=== PATIENT | female | born 2000 | race Caucasian/White ===

== ENCOUNTER 2019-04-27 19:10 | Emergency (ER) | payer BC, SELFPAY ==
[2019-04-27 19:11] VITALS: BP 124/84; PULSE 106; RESP 24; TEMP 37; O2SAT 100; BMI 26.6
[2019-04-27 19:17] VITALS: BP 124/84; PULSE 106; RESP 24; TEMP 37; O2SAT 100
--- NOTE | 2019-04-27 19:36 | EKG12_ITS ---
Test Reason : DYSRHYTHMIA Blood Pressure : / mmHG Vent. Rate : 078 BPM Atrial Rate : 078 BPM P-R Int : 184 ms QRS Dur : 104 ms QT Int : 384 ms P-R-T Axes : 063 003 032 degrees QTc Int : 437 ms Normal sinus rhythm with sinus arrhythmia Normal ECG Confirmed by SUKHJINDER GARDINER ([id number]), city editor RUY KEVIN ([id number] on 04/29/2019 3:12:47 PM Referred By: MR Confirmed By:SUKHJINDER GARDINER
--- NOTE | 2019-04-27 19:39 | ED.VIS.GEN ---
History of Present Illness Chief Complaint: Shortness of Breath Informant: Patient Onset: Weeks Context: Gradual Onset Timing: Continuous Current Severity: Moderate Maximum Severity: Moderate Narrative: Patient presents emergency department shortness of breath. She does have a history of asthma. She states that she was recently treated for upper respiratory infection with 21 days of Ceftin ear. She states that she has not improved. She states if she walks a distance, she gets short of breath. She has been using her inhaler with little relief. She is never had to take steroids for her breathing. She denies any chest pain. She denies any fever or chills. She is otherwise been in her normal state of health. Prior similar symptoms: No Recent Illness/Hospitalization: No Past Medical History - Allergies and Home Meds Allergies/Adverse Reactions: Allergies amoxicillin Allergy (Verified 04/27/19 19:16) Rash chlorhexidine Allergy (Verified 04/27/19 19:16) Rash ibuprofen Allergy (Verified 04/27/19 19:16) Other UNABLE TO HEAR sulfamethoxazole [From Bactrim] Allergy (Verified 04/27/19 19:16) Rash trimethoprim [From Bactrim] Allergy (Verified 04/27/19 19:16) Rash wheat Allergy (Verified 04/27/19 19:16) Other CELIAC tramadol Adverse Reaction (Verified 04/27/19 19:16) Nausea/Vom/Diarrhea Primary Care Physician: NOT,DEFINED [NON-STAFF] - Prior records reviewed: Yes Past Medical History: - - Allergic rhinitis Review of Systems General: Denies: Chills, Fever, Sweats Eyes: Denies: Visual changes - bilaterally, Diplopia ENT: Denies: Rhinorrhea, Sore throat Cardiovascular: Denies: Chest pain, Palpitations Respiratory: Reports: Dyspnea, Cough, Dyspnea on exertion Gastrointestinal: Denies: Abdominal pain, Nausea, Vomiting, Diarrhea, Melena, Hematochezia Genitourinary: Denies: Dysuria, Hematuria, Frequency Musculoskeletal: Denies: Back pain, Extremity Pain Skin: Denies: Rash, Wounds Neurological: Denies: Headache, Weakness, Numbness Physical Exam Vital Signs/Narrative: Vital Signs Temp Pulse Resp BP Pulse Ox 04/27/19 19:17 98.6 F 106 H 24 H 124/84 H 100 04/27/19 19:11 98.6 F 106 H 24 H 124/84 H 100 Inital Vital Signs reviewed: Yes General: Well nourished, Well developed, No Acute Distress Head: Normocephalic, Atraumatic Eyes: Perrl, EOMI ENT: Moist mucous membranes, No rhinorrhea Neck: Supple, Nontender Cardiovascular: Regular rate, Regular rhythm, No murmurs Respiratory: No distress, Chest nontender, Wheezing Abdomen: Soft, Nontender, Nondistended, Normal bowel sounds Back: Nontender, Normal Inspection Extremities: Nontender, No edema Skin: Normal color, No rash Neurological: Alert, Oriented x3, Cranial nerves II-XII grossly intact, Normal Strength, Normal Sensation Psychological: Normal affect, Normal Mood Diagnostic/Tx/Re-eval Clinical Impression(s) from Imaging Studies Chest X-Ray 04/27/19 19:45 IMPRESSION: Normal x-ray examination of the chest. Electronically Signed: Perry Hilton MD at 20:05 EST , Service support , - Medical Decision Making The patient has no tachypnea. Triage initially noted a heart rate of 106, but on my evaluation, the patient is 88. EKG was obtained. It demonstrated sinus rhythm at a rate of 78. There was no acute ischemic change. The patient is PERC negative. My suspicion is that this is persistent bronchial inflammation. I do feel this is likely why she has not improved with her antibiotic therapy. Patient was given a nebulized breathing treatment. Chest x-ray was obtained which was unremarkable for acute process. I do the patient is safe for outpatient therapy, but I do feel that she would benefit from a burst of prednisone. She is given a first dose here. She was counseled on using her inhaler as needed. She will return with any worsening symptoms. Impression 1. Bronchospasm ED Disposition - Plan for ED Patient: Instructions: BRONCHITIS, No Antibiotic (Adult) Prescriptions: Prednisone [Deltasone] 40 mg PO DAILY #10 tab Prescription Printed Referrals: NOT,DEFINED [NON-STAFF] -
--- NOTE | 2019-04-27 19:43 | ED.RN ---
NO OLD EKGS IN MUSE
--- NOTE | 2019-04-27 19:45 | RAD_ITS ---
STUDY: X-RAY CHEST REASON FOR EXAM: Female, 19 years old. COUGH WITH SOB TECHNIQUE: Frontal and lateral views of the chest. COMPARISON: None. FINDINGS: The lungs are clear and expanded. There is no demonstrated pleural abnormality. Normal size heart. Normal mediastinum and bob. Normal visualized pulmonary arteries. Normal visualized aortic arch and descending thoracic aorta. Normal visualized thoracic spine. Normal visualized ribs, clavicles, and shoulders. There is no demonstrated abnormality of the visualized soft tissue structures of the upper abdomen. RAD/Chest PA and Lateral IMPRESSION: Normal x-ray examination of the chest. Electronically Signed: Perry Hilton MD at 20:05 EST , Service support ,
[2019-04-27 20:04] VITALS: PULSE 83; RESP 20; O2SAT 99
[2019-04-27] MEDS: Albuterol 2.5 MG/3 ML VIAL.NEB. INHALATION ×3 (20:04)
[2019-04-27] MEDS: Ipratropium/Albuterol Sulfate 3 ML AMPUL.NEB INHALATION (20:04)
[2019-04-27] MEDS: predniSONE 20 MG Tablet 60 MG PO (20:20)
[2019-04-27 20:25] VITALS: O2SAT 97
--- NOTE | 2019-04-27 20:56 | CPS ---
x3 Albuterol given as well
== END 2019-04-27 20:54 | disposition home or self-care (01) ==
LOC: ED 19:58
PROVIDERS: Emergency Provider Emergency Medicine
DX: J98.01 Acute bronchospasm (principal)
CPT/HCPCS: 71046; 93005; 94640; 99251; 99283; G0463

== ENCOUNTER 2019-12-19 14:57 | Emergency (ER) | payer BC, SELFPAY ==
[2019-12-19 14:57] VITALS: BP 128/76; PULSE 87; RESP 14; TEMP 36.4; O2SAT 97; BMI 25.0
--- NOTE | 2019-12-19 15:32 | RAD_ITS ---
STUDY: X-RAY CHEST REASON FOR EXAM: Female, 19 years old. Chest pain TECHNIQUE: Frontal view of the chest COMPARISON: 04/27/19 FINDINGS: The lungs are clear. There are no pleural effusions. There is no pneumothorax. The heart is normal in size. The visualized osseous structures are within normal limits. RAD/Chest 1 View (Portable) IMPRESSION: No acute thoracic pathology. Electronically Signed: Jose Pearce, at 16:56 EDT Tel , Service support ,
--- NOTE | 2019-12-19 15:32 | EKG12_ITS ---
Test Reason : WEAK Blood Pressure : / mmHG Vent. Rate : 086 BPM Atrial Rate : 086 BPM P-R Int : 166 ms QRS Dur : 110 ms QT Int : 384 ms P-R-T Axes : 067 025 055 degrees QTc Int : 459 ms Normal sinus rhythm Nonspecific T wave abnormality Abnormal ECG Confirmed by DILLAN ZUNIGA, LILIANA ([id number]), video effects editor MOODY FLOR ([id number]) on 12/22/2019 10:04:12 AM Referred By: ELSIE Confirmed By:LILIANA GRIMALDO MD
--- NOTE | 2019-12-19 15:36 | ED.DCSUM_ITS ---
History of Present Illness Chief Complaint: Dizziness Narrative: Patient presents with some chest pain that started about an hour ago she also feels lightheaded. She has no nausea she has no abdominal pain she has no fevers or chills she has no back pain or tearing sensation she has no pleuritic component she has no lower extremity edema or calf pain she has no DVT or PE risk factors. She tells me she feels more tired than normal. Past Medical History - Allergies and Home Meds Allergies/Adverse Reactions: Allergies amoxicillin Allergy (Verified 12/19/19 14:57) Rash chlorhexidine Allergy (Verified 12/19/19 14:57) Rash ibuprofen Allergy (Verified 12/19/19 14:57) Other UNABLE TO HEAR sulfamethoxazole [From Bactrim] Allergy (Verified 12/19/19 14:57) Rash trimethoprim [From Bactrim] Allergy (Verified 12/19/19 14:57) Rash wheat Allergy (Verified 12/19/19 14:57) Other CELIAC tramadol Adverse Reaction (Verified 12/19/19 14:57) Nausea/Vom/Diarrhea Primary Care Physician: Care Physician,No Primary [Primary Care Provider] - Past Medical History: None Smoking Status: Never smoker Review of Systems All systems negative except as indicated General: Reports: - - Generalized fatigue. Denies: Fever Eyes: Denies: Visual changes - bilaterally Cardiovascular: Reports: Chest pain. Denies: Palpitations, Heart racing Respiratory: Denies: Dyspnea, Cough, Sputum Gastrointestinal: Denies: Abdominal pain, Nausea, Vomiting Genitourinary: Denies: Dysuria Musculoskeletal: Denies: Myalgias, Arthralgias Skin: Denies: Rash, Abscess Neurological: Denies: Headache, Weakness Psych: Denies: Depression Endocrine: Denies: Polyuria, Polydipsia, Heat intolerance Hematologic: Denies: Easy bruising, Easy bleeding Allergy: Denies: Uticaria, Swelling of the mouth Physical Exam Vital Signs/Narrative: Vital Signs Temp Pulse Resp BP Pulse Ox 12/19/19 14:57 97.6 F L 87 14 128/76 H 97 General: Well nourished, Well developed Head: Normocephalic, Atraumatic Eyes: Negative for: Pale conjunctiva ENT: Dry mucous membranes Neck: Supple Cardiovascular: Regular rate, Regular rhythm, No murmurs Respiratory: No distress, - - He has reproducible chest tenderness in the lower left paraspinal region, in the costochondral region. Abdomen: Soft, Nontender Back: Nontender, Normal Inspection. Negative for: CVA tenderness Extremities: Nontender, No edema Skin: Normal color Neurological: Alert, Cranial nerves II-XII grossly intact, Normal Strength Psychological: Normal affect Diagnostic/Tx/Re-eval - Rhythm Strip Rhythm Strip: Sinus Rhythm Rate: 86 Ectopy: None - EKG Initial EKG Interpretation: Sinus Rhythm, - - Normal sinus rhythm with a rate of 86. Normal NH and QTc intervals. No ischemic changes. Interpreted by emergency doctor - Medical Decision Making Patient has a normal work-up she received Toradol she is significantly improved. She has a heart score of 1. She has no PE or DVT risk factors and she appears well I believe she is stable for discharge she is significantly improved after Toradol and IV fluids. ED Disposition - Plan for ED Patient: Disposition: Home or Assisted Living Diagnosis: Lightheadedness, Chest wall pain Instructions: ED Chest Pain NonCardiac, ED Dizziness [facility] Prescriptions: Naproxen [Naprosyn] 500 mg PO BID PRN #20 tab Transmission Status: Sent to [facility] Referrals: Care Physician,No Primary [Primary Care Provider] -
[2019-12-19 15:51] LABS: Absolute Lymphocyte Count 1.52 X10^3/uL (0.83-4.51); Absolute Neutrophil Count 3.4 X10^3/uL (2.0-7.7); Basophil# 0.03 X10^3/uL; Basophil% 0.5 % (0-1); Eosinophil# 0.08 X10^3/uL; Eosinophils% 1.4 % (0-5); Hematocrit 34.5 % (37-47); Hemoglobin 11.5 g/dL (12.0-15.0); Lymphocyte # 1.52 X10^3/ul (4.0); Lymphocyte % 27.1 % (19-41); Mean Corp Hgb Conc 33.3 g/dL (32-36); Mean Corpuscular Hgb 31.3 pg (27.0-32.0); Mean Platelet Vol. 9.1 fl (6.2-12.0); Monocyte# 0.55 X10^3/uL; Monocyte% 9.8 % (0-10); NRBC Flagged by Analyzer 0 % (0-5); Neutrophil % 60.7 % (47-70); Platelet Count 204 K/mm3 (150-450); RBC Distribution Width CV 12.7 % (11.6-14.6); RBC Distribution Width SD 43.8 fl (35.1-43.9); Red Blood Count 3.67 M/mm3 (4.2-5.4); White Blood Count 5.6 K/mm3 (4.4-11.0)
[2019-12-19] MEDS: 0.9% Normal Saline 1,000 ML 1000 ML IV (16:04)
[2019-12-19] MEDS: Ketorolac 15 MG/ML Vial IV (16:04)
[2019-12-19 16:08] LABS: ALB/GLOB Ratio 1.4 RATIO (0.9-2.4); AST(SGOT) 15 U/L (15-37); Alanine Aminotransfer ALT/SGPT 22 U/L (13-56); Albumin, Serum 4.2 g/dL (3.2-5.0); Alkaline Phosphatase 52 U/L (45-117); Anion Gap 5 (5-15); BUN 11 mg/dL (7-18); BUN/Creat Ratio 11.3 RATIO (10-20); Calcium,Total 8.8 mg/dL (8.5-10.1); Chloride 109 mmol/L (98-107); Creatinine, Serum 0.97 mg/dL (0.55-1.02); EST Glomerular Filtration Rate 76 mL/min (>60); Est Glom Filt Rate - Afr Amer 92 mL/min (>60); Estimated Creatinine Clearance 85.88 ml/min; Glucose 107 mg/dL (74-106); Potassium 3.6 mmol/L (3.5-5.1); Protein, Total 7.2 g/dL (6.4-8.2); Sodium Level 142 mmol/L (136-145)
[2019-12-19 17:21] VITALS: BP 122/86; PULSE 76; RESP 14; O2SAT 100
== END 2019-12-19 17:22 | disposition home or self-care (01) ==
PROVIDERS: Emergency Provider Emergency Medicine
DX: R42 Dizziness and giddiness (principal); R07.89 Other chest pain; Z79.899 Other long term (current) drug therapy
CPT/HCPCS: 71045; 80053; 84484; 85025; 93005; 96361; 96374; 99282; J7030